=== PATIENT | female | born 1995 | race Hispanic/Latino ===

== ENCOUNTER 2024-03-07 12:46 | Emergency (ER) | payer MEDICAID, SELFPAY ==
[2024-03-07 13:27] LABS: % Basophils 0.7 % (0-2); % Eosinophils 4.3 % (0-6); % Immature Granulocytes 0.2 % (0-0.5); % Lymphocytes 46.9 % (20.5-51.1); % Monocytes 4.6 % (1.7-9.3); % Neutrophils 43.3 % (42.2-75.2); Absolute Eosinophils 0.3 10^3/uL (0-0.7); Absolute Lymphocytes 2.8 10^3/uL (1.2-3.4); Absolute Monocytes 0.3 10^3/uL (0.1-0.6); Absolute Neutrophils 2.6 10^3/uL (1.4-6.5); Hematocrit 38.8 % (37.0-47.0); Hemoglobin 12.9 g/dL (12.0-16.0); Mean Corp Hgb Conc. 33.2 g/dL (33.0-37.0); Mean Corpuscular Hgb 28.8 pg (27.0-31.0); Mean Corpuscular Volume 86.6 fL (81.0-99.0); Mean Platelet Volume 10.8 fL (7.4-10.4); Nucleated Red Blood Cells % 0 %; Platelet Count 281 10^3/uL (130-400); Red Blood Cell Count 4.48 10^6/uL (4.20-5.40); Red Cell Dist. Width 12.9 % (11.5-14.5); White Blood Cell Count 6.1 10^3/uL (4.8-10.8)
[2024-03-07 13:40] LABS: ALT (SGPT) 16 U/L (0-35); AST (SGOT) 19 U/L (14-36); Alkaline Phosphatase 37 U/L (38-126); Blood Urea Nitrogen 9 mg/dl (7-17); Calcium 9.1 mg/dl (8.4-10.2); Carbon Dioxide 23 mmol/L (22-30); Chloride 103 mmol/L (98-107); Glucose 93 mg/dl (70-99); Potassium 4.3 mmol/L (3.5-5.1); Sodium 133 mmol/L (135-145); Total Bilirubin 0.3 mg/dl (0.2-1.3); Total Protein 6.8 g/dl (6.3-8.2); eGFR > 60.00
--- NOTE | 2024-03-07 16:37 | ED.GENMED ---
History of Present Illness
General
Chief Complaint: Problems
Source: patient
Exam Limitations: none
Time Seen by Provider: 03/07/24 16:05
Nursing documentation reviewed up to this point in time: agreed with
History of Present Illness
History of Present Illness:
Patient is a 28-year-old female at approximately 6 weeks gestation presenting to the emergency department for evaluation of vaginal bleeding. Patient states that this morning when she is at work she went to the bathroom and had a small amount
of light pink bleeding on the toilet paper. She denies any blood in toilet bowl. Patient reports that she came to the emergency department for evaluation. She has had mild vaginal spotting since however denies significant bleeding. Patient
denies passing any blood clots. Patient denies any abdominal cramping. No loss of fluid or abnormal vaginal discharge. No dysuria or urinary symptoms.
Patient has not had initial [facility] appointment yet for this . She is scheduled for next Friday at [facility]. No ultrasound confirmation of .
Patient did have a history of preeclampsia in prior pregnancies. She has had 3 C-sections. No history of miscarriages.
Patient is not sure of her blood type although does not recall ever receiving RhoGAM
Review of Systems
Review of Systems
Allergies reviewed?: Yes
All Other Systems: ROS reviewed and negative except as documented in HPI and ROS
Phy Exam
Physical Exam
Physical Exam:
Vitals: Patient's vital signs are stable. Afebrile
General: Patient is well appearing, no acute distress. Nontoxic appearing
Skin: Warm and dry, no rashes or lesions
Head: Normocephalic, atraumatic
Eyes: Sclera nonicteric. EOMs intact. No nystagmus.
Throat: Protecting airway
Neck: Normal ROM, no cervical spine tenderness, no meningismus
Cardiac: Regular rate and rhythm, no murmurs.
Pulm: Normal respiratory effort, no wheezes, rales, rhonchi heard on exam.
Abdomen: Abdomen soft. No abdominal tenderness. No rebound tenderness or guarding.
Extremities: No evidence of cyanosis or edema. Palpable DP pulses
Neuro: AAOx3. Grossly intact.
Psychiatric: Normal affect.
Course
Orders/Labs/Results
Orders:
Orders
03/07/24 13:05
US 1st Trimester Urgent
Comment:
Reason For Exam: vaginal bleeding
03/07/24 13:16
Beta HCG Quantitative Urgent
Is this a screen?: No
Complete Blood Count/With Diff Urgent
Comprehensive Metabolic Panel Urgent
03/07/24 16:31
Vital Signs- Treatment ONCE
Frequency: Once
03/07/24 17:25
Type+Screen Urgent
03/07/24 17:53
ABO2 Urgent
BBK Wristband Number:
Associate notified that ABO2 has been ordered: [id number]
Date: 03/07/24
Time: 17:46
Cargo Vessel Stewardess ID: [id number]
Urinalysis Reflex To Culture Urgent
Date Specimen was Collected: 03/07/24
Time Specimen was Collected: 17:40
Urine Microscopic Reflex Cult Urgent
Urine Culture Urgent
PRACHI Source: U
Specimen Description:
Date Specimen was Collected: 03/07/24
Time Specimen was Collected: 17:40
Comment: ADD ON
03/07/24 18:33
Add On - Microbiology Urgent
Tests Added?: urine culture
Abnormal Lab Results
03/07/24 03/07/24
13:16 17:53
MPV 10.8 H fL
(7.4-10.4)
Sodium 133 L mmol/L
(135-145)
Creatinine 0.5 L mg/dL
(0.6-1.0)
Alkaline Phosphatase 37 L U/L
(38-126)
Urine Ketones 2+ A
(Negative)
Leukocyte Esterase Rfl Trace A
(Negative)
03/07/24 13:16
03/07/24 13:16
Vital Signs
Initial and Last Documented VS:
Initial Vital Signs
Temp Pulse Resp Pulse Ox
99.2 F 102 18 99
03/07/24 13:02 03/07/24 13:02 03/07/24 13:02 03/07/24 13:02
Last Documented Vital Signs
Temp Pulse Resp BP Pulse Ox
99.2 F 102 16 110/68 98
03/07/24 13:02 03/07/24 18:55 03/07/24 18:55 03/07/24 18:55 03/07/24 18:55
Information
Weeks gestation: Weeks:
Location: Location: (Intrauterine)
MDM/Problems Addressed
Differential Diagnosis Includes:
Not limited to: Threatened , missed , incomplete , subchorionic hemorrhage, etc.
MDM/Problems Addressed:
Patient is a 28-year-old at approximately 6 weeks gestation presenting with vaginal bleeding. Patient with minimal bright red blood/spotting throughout today. No abdominal cramping, loss of fluids, dizziness, lightheadedness, shortness of
breath. No fever. Patient has stable vital signs on arrival, she is normotensive and afebrile. On exam�patient is very well-appearing, no apparent distress. Abdomen soft and nontender. Basic labs were initiated in triage without any clinically
significant abnormalities. Her hemoglobin is normal at 12.9. An ultrasound was also obtained which shows a live single intrauterine with estimated gestational age of 6 weeks. heart tones of 121bpm. There was a possible small
subchorionic hematoma noted on ultrasound which may be contributing to patient's spotting. Vaginal bleeding possibly secondary to subchronic hematoma versus threatened . She will require close [facility] follow-up. No indication for
admission. However�will check type and screen and urinalysis prior to discharge to ensure no indication for RhoGAM.
Update: Patient is blood type O+. RhoGAM not indicated. Urine with trace leukocyte esterase but no bacteria. A urine culture will be sent. No indication to treat UTI at this time. Patient stable for discharge with [facility] follow-up. Close
return precautions discussed. Case discussed with attending physician. Patient comfortable plan
Chronic conditions affecting care:
N/A
Acute Exacerbation and/or Progression of Chronic Illness:
N/A
*Radiology
Radiology exam reviewed: radiology read reviewed (Documented intrauterine approximately 6 weeks gestation with heart rate of 121 bpm)
*Pulse Oximetry
Patient hypoxic: no
*EKG
Interpreted by ED Provider?: NA
*Photovoltaic Subcontractor Interpretation
Rate: Photovoltaic Subcontractor- N/A
*Critical Care Note
Total Time (30-74mins, 75-104mins- exclusive of procedures): Not Applicable
ED Attending Note
-
Portions of this chart may have been created with voice recognition software.� Occasional wrong word or��sound alike� substitutions may have occurred due to the inherent limitations of voice recognition software.
Discharge Plan
Departure
Patient Disposition: Home (Routine Discharge)
Date of Disposition: 03/07/24
Time of Disposition: 18:36
Patient with high blood pressure during this ER visit?: No
Condition: Good
Covid-19: Not Applicable
Discharge Problem:
Vaginal bleeding during , Subchorionic hematoma in first trimester
Instructions: Subchorionic Bleeding
Referrals:
UNKNOWN - PT DOES,NOT KNOW [Family Provider] -
Activity Restrictions/Additional Instructions:
RETURN TO THE EMERGENCY DEPARTMENT WITH ANY PERSISTENT HEAVY VAGINAL BLEEDING, ABDOMINAL PAIN/CRAMPING, FEVERS, LIGHTHEADEDNESS/DIZZINESS, SHORTNESS OF BREATH, WORSENING IN CURRENT SYMPTOMS, OR ANY OTHER CONCERNS
-As discussed�your ultrasound performed the emergency department did show an intrauterine with a gestational age of 6 weeks. There was a small subchorionic hematoma noted on ultrasound which may be contributing to possible vaginal
spotting.
-Is important stay well-hydrated.
-As discussed�it is very important you follow-up with your [facility] as next Friday for further evaluation/management and to ensure symptoms are improving. You may require repeat ultrasound.
Monitor your symptoms closely and return to the emergency department with any acute worsening/new symptoms or any other concerns
Interventions
Interventions:
*Risk Screen - Suicide Last Done: 03/07/24 13:02
*General Assessment Last Done: 03/07/24 13:02
*Neglect/Abuse Screening Last Done: 03/07/24 18:00
ED- Fall Risk Assessment Last Done: 03/07/24 18:55
*ED COVID-19 Vaccine History Last Done: 03/07/24 13:02
*Nursing Disposition Last Done: 03/07/24 18:55
ED-Female Genitourinary Assessment Last Done: 03/07/24 18:00
Discharge Date and Time
Discharge Date/Time: 03/07/24 18:50
Print Language: SERBIAN
[2024-03-07 16:50] VITALS: BP 105/71
[2024-03-07 18:05] LABS: Urine Albumin Negative (Neg - Trace); Urine Bilirubin Negative (Negative); Urine Character Clear (Clear); Urine Color Yellow; Urine Glucose Negative (Negative); Urine Ketone 2+ (Negative); Urine Leukocyte Trace (Negative); Urine Nitrite Negative (Negative); Urine Occult Blood Negative (Negative); Urine Urobilinogen Negative (Neg - 1+)
[2024-03-07 18:16] LABS: Urine Squamous Cell 16-20 /LPF (Few)
[2024-03-07 18:17] LABS: Urine Red Blood Cell 0-2 /HPF (0-2); Urine White Cell 0-2 /HPF (0-5)
[2024-03-07 18:55] VITALS: BP 110/68
== END 2024-03-07 18:50 | disposition home or self-care (01) ==
LOC: EMR 12:46
PROVIDERS: Emergency Medicine; Physician Assistant; EMERGENCY PHYSICIAN Emergency Medicine
DX: O20.8 Other hemorrhage in early pregnancy (principal); Z3A.01 Less than 8 weeks gestation of pregnancy
CPT/HCPCS: 99285; 76801; 80053; 81003; 81015; 84702; 85025; 86850; 86900; 86901; 87086